=== PATIENT | male | born 1975 | race Two or more races ===

== ENCOUNTER 2021-11-19 08:46 | Emergency (ER) | payer OTHER ==
[~2021-11-19] VITALS: Ht 175.3 cm; Wt 77.1 kg
[2021-11-19 08:50] VITALS: BP 152/71
[2021-11-19] MEDS ORDERED: IBUPROFEN 800 MG TAB PO ONE (09:45)
[2021-11-19] MEDS ORDERED: METH750T22 PO (10:01)
[2021-11-19] MEDS ORDERED: IBUP800T27 PO (10:01)
== END 2021-11-19 10:07 | disposition home or self-care (01) ==
LOC: ER 08:46
DX: S16.1XXA Strain of muscle, fascia and tendon at neck level, initial encounter (principal); V43.62XA Car passenger injured in collision with other type car in traffic accident, initial encounter; Y93.89 Activity, other specified; Y92.410 Unspecified street and highway as the place of occurrence of the external cause; Y99.8 Other external cause status
CPT/HCPCS: 72040